=== PATIENT | female | born 1960 | race African-American/Black ===

== ENCOUNTER 2017-07-31 20:30 | Emergency (ER) | payer OTHER ==
[~2017-07-31] VITALS: Ht 175.3 cm; Wt 90.7 kg
[2017-07-31 21:17] LABS: Basophils # (auto) 0.1 uL; Basophils % (auto) 0.7 % (0.0-2.0); Eosinophils # (auto) 0 uL; Eosinophils % (auto) 0.1 % (0.0-7.0); Hematocrit 44.4 % (36.0-46.0); Hemoglobin 14.9 g/dL (12.2-16.2); Lymphocytes # (auto) 1.5 uL; Lymphocytes % (auto) 11.9 % (10.0-50.0); Mean Corpuscular Hemoglobin 29.8 pg (28.0-32.0); Mean Corpuscular Hgb Conc. 33.6 g/dL (32.0-36.0); Mean Corpuscular Volume 88.7 fL (80.0-100.0); Monocytes # (auto) 0.7 uL; Monocytes % (auto) 5.7 % (0.0-12.0); Neutrophils # (auto) 10.5 uL; Neutrophils % (auto) 81.6 % (37.0-80.0); Platelet Count (auto) 516 10^3/uL (140-450); Red Blood Cells 5.01 10^6/uL (4.0-5.20); Red Cell Distribution Width 14.3 % (11.8-14.3); White Blood Cell 12.8 10^3/uL (4.4-10.8)
[2017-07-31 21:30] VITALS: BP 145/91
[2017-07-31 21:37] LABS: Anion Gap 16 (5-15); BUN/Creatinine Ratio 19.5; Blood Urea Nitrogen 15 mg/dL (7-18); Carbon Dioxide 19 mmol/L (21-32); Chloride 104 mmol/L (98-107); GFR African American 100 mL/min; GFR Non-African American 82 mL/min; Glucose 133 mg/dL (74-106); Sodium 139 mmol/L (136-145)
[2017-07-31 21:38] LABS: Alanine Aminotransferase 42 U/L (13-56); Albumin 4.4 g/dL (3.4-5.0); Alkaline Phosphatase 159 U/L (45-117); Aspartate Aminotransferase 34 U/L (15-37); Bilirubin, Total 1.3 mg/dL (0.2-1.0); Blood Alcohol < 3.0 mg/dL (0-5); Calcium 9.5 mg/dL (8.5-10.1); Total Protein 8.3 g/dL (6.4-8.2)
== END 2017-07-31 23:40 | disposition home or self-care (01) ==
LOC: EDBD 20:30 → ER 20:38
DX: R42 Dizziness and giddiness (principal); Z04.3 Encounter for examination and observation following other accident; Z88.1 Allergy status to other antibiotic agents; Z91.041 Radiographic dye allergy status; Z88.6 Allergy status to analgesic agent
CPT/HCPCS: 36415; 70450; 72125; 80053; 80320; 82962; 84484; 85025

== ENCOUNTER 2019-02-26 13:58 | Emergency (ER) | payer OTHER ==
[~2019-02-26] VITALS: Ht 177.8 cm; Wt 117.9 kg
[2019-02-26 17:33] LABS: Basophils # (auto) 0.1 uL; Basophils % (auto) 0.9 % (0.0-2.0); Eosinophils # (auto) 0 uL; Eosinophils % (auto) 0.5 % (0.0-7.0); Hematocrit 41.4 % (36.0-46.0); Hemoglobin 13.9 g/dL (12.2-16.2); Lymphocytes # (auto) 1.9 uL; Lymphocytes % (auto) 18.8 % (10.0-50.0); Mean Corpuscular Hemoglobin 30.5 pg (28.0-32.0); Mean Corpuscular Hgb Conc. 33.7 g/dL (32.0-36.0); Mean Corpuscular Volume 90.8 fL (80.0-100.0); Monocytes # (auto) 0.7 uL; Monocytes % (auto) 6.7 % (0.0-12.0); Neutrophils # (auto) 7.3 uL; Neutrophils % (auto) 73.1 % (37.0-80.0); Nucleated Red Blood Cells % 0.1 %; Platelet Count (auto) 439 10^3/uL (140-450); Red Blood Cells 4.56 10^6/uL (4.0-5.20)
[2019-02-26 17:50] LABS: Alanine Aminotransferase 27 U/L (13-56); Albumin 3.8 g/dL (3.4-5.0); Anion Gap 8 (5-15); Aspartate Aminotransferase 20 U/L (15-37); BUN/Creatinine Ratio 20.5; Blood Alcohol < 3.0 mg/dL (0-5); Blood Urea Nitrogen 17 mg/dL (7-18); Calcium 9.1 mg/dL (8.5-10.1); Carbon Dioxide 25 mmol/L (21-32); Chloride 109 mmol/L (98-107); GFR African American 91 mL/min; GFR Non-African American 75 mL/min; Glucose 89 mg/dL (74-106); Magnesium 2.3 mg/dL (1.6-2.6); Potassium 3.6 mmol/L (3.5-5.1); Salicylate < 1.7 mg/dL (2.8-20.0); Sodium 142 mmol/L (136-145)
[2019-02-26 17:53] LABS: Alkaline Phosphatase 140 U/L (45-117); Bilirubin, Total 0.7 mg/dL (0.2-1.0); Total Protein 7.7 g/dL (6.4-8.2)
[2019-02-26 18:05] VITALS: BP 132/80
[2019-02-26 18:05] LABS: Acetaminophen < 2.0 ug/mL (10-30)
[2019-02-26 18:50] LABS: Urine Bacteria MANY /hpf (None Seen); Urine Blood Negative /uL (Negative); Urine Mucus MANY (None Seen); Urine Specific Gravity 1.021 (1.001-1.035); Urine WBC 62 /hpf (0 - 5)
[2019-02-26 19:03] LABS: Alcohol, Urine < 3.0 mg/dL (0-5); Amphetamine Screen, Urine NEGATIVE (NEGATIVE); Barbiturate Scree,Urine NEGATIVE (NEGATIVE); Benzodiazephine Screen, Urine NEGATIVE (NEGATIVE); Cannabinoid Screen, Urine NEGATIVE (NEGATIVE); Cocaine Screen, Urine NEGATIVE (NEGATIVE); Opiate Scree,Urine NEGATIVE (NEGATIVE); Phencyclidine Screen, Urine NEGATIVE (NEGATIVE)
[2019-02-26] MEDS ORDERED: CIPROFLOXACIN 400MG/200ML 200 ML IV ONE (19:30)
[2019-02-26] MEDS ORDERED: QUEtiapine FUMARATE 25 MG TAB PO ONE (21:15)
[2019-02-26] MEDS ORDERED: CIPROFLOXACIN HCL 500 MG TAB PO ONE (21:30)
== END 2019-02-26 22:20 | disposition home or self-care (01) ==
LOC: ER 14:02
DX: F20.9 Schizophrenia, unspecified (principal); N39.0 Urinary tract infection, site not specified
CPT/HCPCS: 36415; 80053; 80307; 80320; 80329; 81001; 81025; 83735; 85025; 94761